=== PATIENT | female | born 1995 | race African-American/Black ===

== ENCOUNTER 2017-01-18 15:20 | Emergency (ER) | payer MEDICAID ==
[~2017-01-18] VITALS: Ht 165.1 cm; Wt 61.2 kg
[2017-01-18 15:35] VITALS: BP 108/76
--- NOTE | 2017-01-18 15:49 | Emergency Room Report ---
History of Present Illness General Chief Complaint: Pain Source: Patient Present Illness HPI 21-year-old female presents emergency department complaining of 10 out of 10 in severity right-sided back pain in addition to left lower abdominal pain, body aches, cough with productive sputum, intermittent fevers and chills with vomiting times one week. Patient denies recent travel or ill contacts. Patient states she is not a whether or not she is . Patient denies frequency, dysuria, hematuria. Pt states the right sided flank pain is sharp and intermittent. Patient reports intermittent headache generalized that is slowly progressive and she rates as 6/10 in severity. Patient states she did see did receive her flu vaccination this year. denies rash, neck pain, or neck stiffness. Denies pelvic pain, vaginal d/c or history of STI's. Denies CP, Palpitations, LOC, AMS, dizziness, Changes in Vision, Sensation, paresthesias, or a sudden severe headache. Allergies: Coded Allergies: PEANUT (Verified Allergy, Unknown, 01/18/17) Patient History Past Medical History: see triage record Past Surgical History: none Pertinent Family History: none Now: No Reviewed Nursing Documentation: PMH: Agreed, PSxH: Agreed Nursing Documentation-PMH Past Medical History: No Stated History Review of Systems All Other Systems: negative except mentioned in HPI Physical Exam Vital Signs Date Time Temp Pulse Resp B/P Pulse Ox O2 Delivery O2 Flow Rate FiO2 01/18/17 15:25 98.1 115 20 108/76 97 Room Air Sp02 EP Interpretation: reviewed, abnormal - pt is tachycardic at 115 General Appearance: no apparent distress, alert, GCS 15, non-toxic Head: normocephalic, atraumatic Eyes: bilateral eye PERRL, bilateral eye normal inspection ENT: hearing grossly normal, normal pharynx, no angioedema, normal voice Neck: full range of motion, supple/symm/no masses Respiratory: chest non-tender, lungs clear, normal breath sounds, speaking full sentences Cardiovascular #1: regular rate, rhythm, no edema Gastrointestinal: normal bowel sounds, soft, no guarding, no rebound, other - left quadrant TTP, no appreciable CVA, Rectal: deferred Genitourinary: normal inspection, no CVA tenderness Musculoskeletal: back normal, gait/station normal, normal range of motion, non- tender, no calf tenderness Neurologic: alert, oriented x3, responsive, motor strength/tone normal, sensory intact, speech normal Psychiatric: judgement/insight normal, memory normal, mood/affect normal, no suicidal/homicidal ideation Skin: normal color, no rash, warm/dry, well hydrated Lymphatic: no adenopathy Medical Decision Making PA Attestation Dr. salcedo is my supervising Physician whom patient management has been discussed with. Diagnostic Impression: Primary Impression: Urinary tract infection Qualified Codes: N30.00 - Acute cystitis without hematuria Additional Impressions: Gastritis Qualified Codes: K29.70 - Gastritis, unspecified, without bleeding Abdominal pain Qualified Codes: R10.84 - Generalized abdominal pain Cough ER Course 21-year-old female presents emergency department complaining of 10 out of 10 in severity right-sided back pain in addition to left lower abdominal pain, cough with productive sputum, intermittent fevers and chills with vomiting times one week. Patient denies recent travel or ill contacts. Patient states she is not a whether or not she is . Patient denies frequency, dysuria, hematuria. Patient reports intermittent headache generalized that is slowly progressive and she rates as 6/10 in severity. Patient states she did see did receive her flu vaccination this year. denies rash, neck pain, or neck stiffness. . Ddx considered but are not limited to PNA, URI, Diverticulitis, acute appy, diarrhea,UC, PUD, GE, pancreatitis, gallstone, kidney stone, pyelonephritis, UTI , obstruction, just to name a few Vital signs: Pt is tachycardic at 115, otherwise VS are WNL, pt. is afebrile. H&PE are most consistent with gastritis will r/o kidney stone ORDERS: -CBC, CMP, lipase: mild dehydration low NA/CL , and mildly elevated LFT's otherwise unremarkable, no wbc count - UA: wbc's leukocytes, and bacteria indicate infection, rbs' and occult blood suspicious for stone. - CT abdomen and pelvis no contrast: no evidence of stones , small amount of pelvic free fluid -CXR: No consolidation, effusion, pneumothorax or acute cardiopulmonary findings per soft read in ED by Dr. Gasca ED INTERVENTIONS: -- 1000NS -- 4mg Morphine IV -4mg Zofran IV d/w pt. the results of her imaging and lab work, at this time there is no obvious emergent condition, pt. is stable for d/c with close outpatient follow up prior to d/c pt. was sleeping comfortable in treatment bed. -Pt able to tolerate oral fluids. DISCHARGE: At this time pt. is stable for d/c to home. Will provide printed patient care instructions, and any necessary prescriptions. Care plan and follow up instructions have been discussed with the patient prior to discharge. UTI, rbc, pt. with back pain too, CT no Contrast: R/O Stone. otherwise d/c Labs Test 01/18/17 15:40 01/18/17 15:55 Urine Color Yellow Urine Appearance Clear Urine pH 6.5 (4.5-8.0) Urine Specific [place] 1.020 (1.005-1.035) Urine Protein 2+ (NEGATIVE) Urine Glucose (UA) Negative (NEGATIVE) Urine Ketones 4+ (NEGATIVE) Urine Occult Blood 2+ (NEGATIVE) Urine Nitrite Negative (NEGATIVE) Urine Bilirubin Negative (NEGATIVE) Urine Urobilinogen 4 MG/DL (0.0-1.0) Urine Leukocyte Esterase Negative (NEGATIVE) Urine RBC 5-10 /HPF (0 - 2) Urine WBC 10-15 /HPF (0 - 2) Urine Squamous Epithelial Cells Few /LPF (NONE/OCC) Urine Amorphous Sediment Few /LPF (NONE) Urine Bacteria Moderate /HPF (NONE) Urine HCG, Qualitative Negative White Blood Count 7.0 K/UL (4.8-10.8) Red Blood Count 4.86 M/UL (4.20-5.40) Hemoglobin 15.4 G/DL (12.0-16.0) Hematocrit 43.7 % (37.0-47.0) Mean Corpuscular Volume 90 FL (80-99) Mean Corpuscular Hemoglobin 31.6 PG (27.0-31.0) Mean Corpuscular Hemoglobin Concent 35.2 G/DL (32.0-36.0) Red Cell Distribution Width 12.2 % (11.6-14.8) Platelet Count 163 K/UL (150-450) Mean Platelet Volume 7.8 FL (6.5-10.1) Neutrophils (%) (Auto) 81.2 % (45.0-75.0) Lymphocytes (%) (Auto) 10.7 % (20.0-45.0) Monocytes (%) (Auto) 7.1 % (1.0-10.0) Eosinophils (%) (Auto) 0.0 % (0.0-3.0) Basophils (%) (Auto) 0.9 % (0.0-2.0) Sodium Level 134 mEQ/L (135-145) Potassium Level 3.4 mEQ/L (3.4-4.9) Chloride Level 92 mEQ/L (98-107) Carbon Dioxide Level 24 mEQ/L (20-30) Anion Gap 18 (5-15) Blood Urea Nitrogen 15 mg/dL (7-23) Creatinine 1.0 mg/dL (0.5-0.9) Estimat Glomerular Filtration Rate > 60 mL/min (>60) Glucose Level 92 mg/dL (74-106) Calcium Level 9.7 mg/dL (8.6-10.2) Total Bilirubin 0.4 mg/dL (0.0-1.2) Aspartate Amino Transf (AST/SGOT) 52 U/L (5-40) Alanine Aminotransferase (ALT/SGPT) 36 U/L (3-33) Alkaline Phosphatase 52 U/L (35-104) Total Protein 8.6 g/dL (6.6-8.7) Albumin 4.9 g/dL (3.5-5.2) Globulin 3.7 g/dL Albumin/Globulin Ratio 1.3 (1.0-2.7) Lipase 34 U/L (< 60) Last Vital Signs Date Time Temp Pulse Resp B/P Pulse Ox O2 Delivery O2 Flow Rate FiO2 01/18/17 15:35 98.1 20 108/76 97 Room Air 01/18/17 15:25 115 Disposition: HOME, SELF-CARE Condition: Stable Scripts Nitrofurantoin Monohyd/M-Cryst* (MACROBID 100 MG*) 100 Mg Capsule 100 MG ORAL EVERY 12 HOURS for 5 Days, #10 CAP Prov: Samara Park P.A. 01/18/17 Guaifenesin/Dextromethorphan (ROBITUSSIN COUGH-CHEST DM LIQ) 237 Ml Liquid 5 ML PO Q6HR, #118 ML Prov: Samara Park P.A. 01/18/17 Acetaminophen* (TYLENOL EXTRA STRENGTH*) 500 Mg Tablet 500 MG ORAL Q6H Y for Mild Pain/Temp > 100.5, #20 TAB 0 Refills Prov: Samara Park 01/18/17 Ranitidine Hcl* (ZANTAC*) 150 Mg Tablet 150 MG ORAL TWICE A DAY for 14 Days, #28 TAB Prov: Samara Park 01/18/17 Ondansetron Odt* (ZOFRAN ODT*) 4 Mg Tab.rapdis 4 MG ORAL Q6H Y for Nausea & Vomiting, #30 TAB Prov: Samara Park 01/18/17 Patient Instructions: Abdominal Pain, Adult, [id number], Urinary Tract Infection Additional Instructions: Take medications as directed. Follow up with PCP in 3-5 days Return sooner to ED if new symptoms occur, or current symptoms become worse. - Please note that this Emergency Department Report was dictated using [employer] operator technology software, occasionally this can lead to erroneous entry secondary to interpretation by the dictation equipment. Samara Park January 18, 2017 15:49
[2017-01-18] MEDS ORDERED: Morphine Sulfate 4mg/ml Inj IVP ONE (16:30)
[2017-01-18 16:43] LABS: BASOPHILS % (AUTO) 0.9 % (0.0-2.0); LYMPHOCYTES % (AUTO) 10.7 % (20.0-45.0); MEAN CORPUSCULAR HEMOGLOBIN 31.6 PG (27.0-31.0); MEAN CORPUSCULAR HGB CONC 35.2 G/DL (32.0-36.0); MEAN CORPUSCULAR VOLUME 90 FL (80-99); MEAN PLATELET VOLUME 7.8 FL (6.5-10.1); MONOCYTES % (AUTO) 7.1 % (1.0-10.0); NEUTROPHILS % (AUTO) 81.2 % (45.0-75.0); PLATELET COUNT 163 K/UL (150-450); RED BLOOD COUNT 4.86 M/UL (4.20-5.40); RED CELL DISTRIBUTION WIDTH 12.2 % (11.6-14.8)
[2017-01-18 16:53] LABS: APPEARANCE,URINE CLEAR; KETONES,URINE 4+ (NEGATIVE); LEUKOCYTE ESTERASE ,URINE NEGATIVE (NEGATIVE); NITRITE,URINE NEGATIVE (NEGATIVE); PH,URINE 6.5 (4.5-8.0); PROTEIN,URINE 2+ (NEGATIVE); UROBILINOGEN,URINE 4 MG/DL (0.0-1.0)
[2017-01-18 17:10] LABS: BACTERIA,URINE MODERATE /HPF; SQUAMOUS EPITHELIAL CELL,UR FEW /LPF (NONE/OCC)
[2017-01-18 17:11] LABS: AMORPHOUS SEDIMENT,UR FEW /LPF
[2017-01-18 17:20] LABS: ALANINE AMINOTRANSFERASE 36 U/L (3-33); ALBUMIN/GLOBULIN RATIO 1.3 (1.0-2.7); ANION GAP 18 (5-15); ASPARTATE AMINO TRANSFERASE 52 U/L (5-40); CALCIUM 9.7 mg/dL (8.6-10.2); CARBON DIOXIDE 24 mEQ/L (20-30); CHLORIDE 92 mEQ/L (98-107); GLOMERULAR FILTRATION RATE > 60 mL/min (>60); HEMOLYSIS 23; LIPASE 34 U/L (< 60); POTASSIUM 3.4 mEQ/L (3.4-4.9); SODIUM 134 mEQ/L (135-145); TOTAL PROTEIN 8.6 g/dL (6.6-8.7)
[2017-01-18 18:00] VITALS: BP 114/60
[2017-01-18 19:35] VITALS: BP 118/62
[2017-01-18] MEDS ORDERED: ZOFRAN ODT4 MG ORAL (19:40)
[2017-01-18] MEDS ORDERED: ZANTAC150 MG ORAL (19:40)
[2017-01-18] MEDS ORDERED: NITROFURANTOIN100 M2 ORAL (19:40)
[2017-01-18] MEDS ORDERED: TYLENOL EXTRA500 MG ORAL (19:40)
[2017-01-18] MEDS ORDERED: ROBITUSSIN COU237 M1 PO (19:40)
[2017-01-18 19:55] VITALS: BP 118/62
--- NOTE | 2017-01-19 09:02 | Diagnostic Imaging Report ---
Indication: Right-sided flank pain upper abdominal pain Technique: Spiral acquisitions obtained through the abdomen and pelvis. No oral or IV contrast, per urinary stone protocol. Multiplanar reconstructions were generated. Total dose length product 62 mGycm. CTDIvol(s) 11 mGy. Dose reduction achieved using automated exposure control Comparison: None Findings: No renal or ureteral calculi, hydronephrosis, or hydroureter. Lack of IV contrast limits assessment of the renal parenchyma; no gross renal parenchymal mass or cyst demonstrated. What is probably a normal appendix is demonstrated. This is best appreciated on the coronal images. No evidence of diverticulosis or diverticulitis. There is focal small bowel distention involving the proximal jejunum in the left upper quadrant, with no abrupt transition point demonstrated.. No free or loculated intraperitoneal air or fluid is evident. The stomach, distal esophagus, duodenum are unremarkable. Lack of IV contrast limits assessment of the solid organs. The liver demonstrates a subcentimeter low-attenuation lesion in segment 6. The gallbladder, bile ducts, pancreas, spleen, adrenals, kidneys are all unremarkable. Retroperitoneal or mesenteric mass or adenopathy. No pelvic mass or adenopathy. Impression: No evidence of urinary stone disease or obstructive uropathy Nonspecific mild distention of a few small bowel loops in the left upper quadrant, could indicate a focal ileus or just be transient Incidental finding of subcentimeter low-attenuation lesion in the right lobe liver which is too small to characterize, most likely benign simple cysts or bile hamartoma. No further followup is necessary. This agrees with the preliminary interpretation provided overnight by Dr. Hawkins The CT scanner at [facility] is accredited by the [employer] and the scans are performed using protocols designed to limit radiation exposure to as low as reasonably achievable to attain images of sufficient resolution adequate for diagnostic evaluation.
--- NOTE | 2017-01-20 08:40 | Diagnostic Imaging Report ---
Indication: PAIN Technique: One view of the chest Comparison: none Findings: Lungs and pleural spaces are clear. Heart size is normal. Impression: No acute process
== END 2017-01-18 19:55 | disposition home or self-care (01) ==
LOC: EMR 16:00
DX: N30.00 Acute cystitis without hematuria (principal); K29.70 Gastritis, unspecified, without bleeding; R10.84 Generalized abdominal pain; R05 Cough; Z91.010 Allergy to peanuts; R52 Pain, unspecified; R07.9 Chest pain, unspecified
CPT/HCPCS: 36415; 71010; 74176; 80053; 81003; 81025; 83690; 85025; 87086; 96360; 96374; 96375; 99284; J2270; J2405